=== PATIENT | female | born 1990 | race Caucasian/White ===

== ENCOUNTER 2025-06-05 09:12 | Emergency (ER) | payer OTHER, SELFPAY ==
--- OUTSIDE RECORDS SUMMARY | 2025-06-03 09:00 | XMS_ITS ---
Author Organization [facility] Address [address] [place] [address] Care Team Providers Care Erp Manager Name Role Phone Adria Htuchison Primary Care Provider [phone] Brittany Diego Unavailable [phone] REASON FOR VISIT CRU aT Social History Tobacco Use: Social History Observation Description Date Details (start date - stop date) Current Smoker NA - NA Sex Assigned At : Social History Observation Description Sex Assigned At Female PRAPARE Question Answer Notes Date Completed/Updated: 06/03/2025 What is your current housing situation? I do not have housing (staying with others, in a hotel, in a nursing home, living outside on the street, on a beach, or in a park) Are you worried about losing your housing? Yes What is the highest level of school that you have finished? Less than a high school degree What is your current work situation? 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 Check all that apply Phone Has lack of transportation k ept you from medical appointments, meetings, work or from getting things needed for daily living? No How often do you see or talk to people that you care about and feel close to? (For example: talking to friends on the phone, visiting friends or family, going to sikh or club meetings) More than 5 times a week How stressed are you? Stress is when someone feels tense, nervous, anxious, or can\t sleep at night because their mind is troubled Very much In the past year have you sp ent more than 2 nights in a row in a half-way, residential, nursing home center, or juvenile correctional facility? No Are you a refugee? I choose not to answer this q uestion What country are you from? I choose not to answe r this question Do you feel physically and e motionally safe where you currently live? Yes In the past year, have you b een afraid of your partner or ex-partner? Yes PRAPARE Score: 10 Enabling Services Provided? Yes Please specify Case Management Follow-up Tobacco Control (Standard) Question Answer Notes Tobacco use: Current every day smoker Additional Findings: Tobacco user e-cigarette Encounters Encounter Location Date Provider Diagnosis [facility] [address] [place] [address] 06/03/2025 Brittany Diego Patient underweight R63.6 and Substance abuse F19.10 Assessments Encounter Date Diagnosis (ICD Code) Assessment Notes Treatment Notes Treatment Clinical Notes Section Notes 06/03/2025 Patient underweight (ICD-10 - R63.6) 06/03/2025 Substance abuse (ICD-10 - F19.10) 06/03/2025 Other Clinician met w ith client to assess needs for residential services. Clinician gathered information regarding historical presentation of mental health and substance use symptoms including withdrawal, HIV Risk assessment, psychiatric hospitalization history and presenting concern. Clinician conducted PHQ9 and CSSRS assessments as well as social drivers of health screening for the purposes of identifying additional service needs. Plan Of Treatment Treatment Notes Assessment Notes Other Clinician met with isabelle monahan to assess needs for residential services. Clinician gathered information regarding historical presentation of mental health and substance use symptoms including withdrawal, HIV Risk assessment, psychiatric hospitalization history and presenting concern. Clinician conducted PHQ9 and CSSRS assessments as well as social drivers of health screening for the purposes of identifying additional service needs. Next Appt Details Follow Up: prn, Reason: Provider Name:Isra gautam, 06/05/2025 01:00:00 PM, [address], [place], [address], Progress Notes * Colby SINGLETONOB:1990 (34 yo F)Acc No.[id number]:06/03/2025 UNLOCKED PROGRESS NOTE Patient: Libertad VAUGHAN Provider: Antonio Diego :1990 A ge:34 Y S ex:Female Date:06/03/2025 Address:[facility] Pcp:Adria Hutchison Subjective: * Chief Complaints: * 1 . CRU aT. * HPI: P sychiatric Assessment - Current Symptoms: Primary concern today A dmitting today for [facility]. O verview of Mental Health Symptoms C hero reported she has been diagnosed with Depression and anxiety, BPD bipolar 2. H istory of Psychiatric Hospitalizations C hero reported she has been hospitalized for mental health concerns many times but is unable to report how many or when the last time was. H istory of Psychiatric and Behavioral Health Treatment?None reported at this time. S ubstance Use: Current Use Patterns C hero reported she is using every day all day long. P rimary Substance Used F entanyl. H istory of substance use H as been using for about 5 years. H x of Withdrawal C hero reported experiencing hot and cold sweats, nausea, shaking, body aches, and depressive symptoms. A ssessment of Social Determinants of Health::: Has A PRAPARE Been Completed In The Past Year? H as a PRAPARE Been Completed In The Past Year? Y es, W as It Completed Today Using [employer]? Y es.? a TBC For Substance Use Services: Who Is Your Primary Care Provider? D o You Have A Primary Care Provider? N o, D ate of last physical exam 0 -2024. D o You Have A Psychiatric Provider? D o You Have A Psychiatric Provider? Y inocencio Mckinney at [place]. D o You Have Any Other Professional Supports? D o You Have Any Other Professional Supports N o.?Consent Forms Completed C onsent Forms N one Needed at this time. D epression Screening: PHQ-9 L ittle interest or pleasure in doing things S everal days, F eeling down, depressed, or hopeless S everal days, T rouble falling or staying asleep, or sleeping too much S everal days, F eeling tired or having little energy S everal days, P oor appetite or overeating N ot at all, F eeling bad about yourself or that you are a failure, or have let yourself or your family down N ot at all, T rouble concentrating on things, such as reading the newspaper or watching television S ever, M oving or speaking so slowly that other people could have noticed; or the opposite, being so fidgety or restless that you have been moving around a lot more than usual S everal days, T houghts that you would be better off or of hurting yourself in some way N ot at all, T otal Score 6, I nterpretation M ild Depression. I ntervention D epression Screening Findings P ositive, F ollow-Up for Depression P atient refused intervention. S creening: Barnes Suicide Severity Rating Scale (LF) D o you want to initiate with S creener form, 1 . Wish to be : Have you wished you were or wished you could go to sleep and not wake up? N o, 2 . Suicidal Thoughts: Have you actually had any thoughts of killing yourself? N o, 6 . Suicide Behavior Question: Have you ever done anything,started to do anything, or prepared to end your life? N o, I nterpretation: L ow Risk. * Medical History: * Social History: S ocial Determinants: P SALENA Otto ate Completed/Updated: 0 06/03/2025, W hat is your current housing situation? I do not have housing (staying with others, in a hotel, in a nursing home, living outside on the street, on a beach, or in a park), A re you worried about losing your housing? Y es, W hat is the highest level of school that you have finished? L ess than a high school degree, What is your current work situation? 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 Check all that apply P Jay jackson as lack of transportation kept you from medical appointments, meetings, work or from getting things needed for daily living? N o, H ow often do you see or talk to people that you care about and feel close to? (For example: talking to friends on the phone, visiting friends or family, going to sikh or club meetings) M ore than 5 times a week, H ow stressed are you? Stress is when someone feels tense, nervous, anxious, or can\t sleep at night because their mind is troubled V deyvi much, I n the past year have you spent more than 2 nights in a row in a half-way, residential, nursing home center, or juvenile correctional facility? N o, A re you a refugee? I choose not to answer this question, W hat country are you from? I choose not to answer this question, D o you feel physically and emotionally safe where you currently live? Y es, I n the past year, have you been afraid of your partner or ex-partner? Y es, P RAPARE Score: 1 0, E nabling Services Provided? Y es, P anh specify C ase Management Follow-up. T obacco Use: T obacco Control (Standard) T obacco use: C urrent every day smoker, A dditional Findings: Tobacco user e -cigarette. Objective: * Vitals: * Examination: M ental Status Exam: ATTENTION AND CONCENTRATION N o deficits. APPEARANCE P oorly Groomed. ATTITUDE AND BEHAVIOR C ooperative. EYE CONTACT G ood. AFFECT C ongruent with reported mood. MOOD E uthymic. INSIGHT F air. JUDGMENT F air. Assessment: * Assessment: 1. P atient underweight - R63.6 2 . S ubstance abuse - F19.10 ? Plan: * Treatment: * Procedure Codes: 9 0791 PSYCH DIAGNOSTIC EVALUATION, Modifiers: AJ , CHS08 [facility] Service * Preventive Medicine: Counseling: S MOKING: P atient counselled on the dangers of tobacco use and urged to quit. 0 06/03/2025 .. C are goal follow-up plan: B LA management provided Y es,?Below Normal BMI Follow-up L ifestyle education regarding diet. * Follow Up: p rn * * Electronic signature of Verajesusita josette Diego on 06/05/2025 at 10:51 AM CDT Sign off status: Pending * Provider: Antonio Diego Date: 0 06/03/2025 Generated for Kody matos/Kings/Gwyn on: 0 06/05/2025 10:51 AM CDT History and Physical Notes * HPI (History of Present Illness) Category Sub-Category Detail Notes Category Not es Depression Screening PHQ-9 Little inte rest or pleasure in doing things: Several days Feeling down, depressed, or hopeless: Se veral days Trouble falling or staying asleep, or sl eeping too much: Several days Feeling tired or having little energy: S everal days Poor appetite or overeating: Not at all Feeling bad about yourself o r that you are a failure, or have let yourself or your family down: Not at all Trouble concentrating on thi ngs, such as reading the newspaper or watching television: Several days Moving or speaking so slowly that other people could have noticed; or the opposite, being so fidgety or restless that you have been moving around a lot more than usual: Several days Thoughts that you would be b irena off or of hurting yourself in some way: Not at all Total Score: 6 Interpretation: Mild Depression Intervention Depression Screening Findings: P ositive Follow-Up for Depression: Patient refuse d intervention Psychiatric Assessment - Current Symptoms Primary concern today Admitting today for [facility] Overview of Mental Health Symptoms Clien t reported she has been diagnosed with Depression and anxiety, BPD bipolar 2 History of Psychiatric Hospitalizations Client reported she has been hospitalized for mental health concerns many times but is unable to report how many or when the last time was History of Psychiatric and B ehavioral Health Treatment None reported at this time Substance Use History of substance use Has been using for about 5 years Hx of Withdrawal Client reported expe riencing hot and cold sweats, nausea, shaking, body aches, and depressive symptoms Primary Substance Used Fentanyl Current Use Patterns Client reported she is using every day all day long Screening Barnes Suicide Sev erity Rating Scale (LF) Do you want to initiate with: Screener form 1. Wish to be : Have you wished you were or wished you could go to sleep and not wake up?: No 2. Suicidal Thoughts: Have you actually had any thoughts of killing yourself?: No 6. Suicide Behavior Question: Have you ever done anything,started to do anything, or prepared to end your life?: No Interpretation:: Low Risk Assessment of Social Determinants of Health:: Has A PRAPARE Been Completed In The Past Year? Has a PRAPARE Been Completed In The Past Year?: Yes Was It Completed Today Using [employer]?: Yes [facility] Who Is Your Primary Care Provider? Do You Have A Primary Care Provider?: No Date of last physical exam: Do You Have A Psychiatric Provider? Do You Have A Psychiatric Provider?: Yes Lisa Mckinney at [place] Do You Have Any Other Professional Supports? Do You Have Any Other Professional Supports: No Consent Forms Completed Consent Forms: N one Needed at this time Examination Category Sub-Category Detail Notes Category Not es Mental Status Exam ATTENTION AND CONCENTRATION No defi cits APPEARANCE Poorly Groomed ATTITUDE AND BEHAVIOR Cooperative EYE CONTACT Good AFFECT Congruent with repor celestina mood MOOD Euthymic INSIGHT Fair JUDGMENT Fair
[2025-06-05] VITALS (9 sets, daily range): BP systolic 105–114; BP diastolic 71–84; PULSE 96–109; RESP 12–22; TEMP 36.4; O2SAT 99–100
--- NOTE | ~2025-06-05 | XR_ITS ---
EXAMINATION: XR chest 2V 06/05/2025 10:42 INDICATION: Chest pain PROCEDURE: 2 view chest COMPARISON: No prior studies for comparison. FINDINGS: The lungs are clear. The cardiomediastinal silhouette is within normal limits. There are no pleural effusions. There is no pneumothorax suspected. There is a lower thoracic vertebral compression fracture treated with vertebroplasty. There are Aviles rods overlying the lower thoracic s pine. IMPRESSION: 1: NO ACUTE CARDIOPULMONARY DISEASE. Reviewed, dictated and finalized at location O.
--- NOTE | ~2025-06-05 | CT_ITS ---
EXAMINATION: CTA chest PE protocol, 06/05/2025 11:35 CDT HISTORY: cp, sob, +dimer COMPARISON: No comparisons available. TECHNIQUE: CTA examination is obtained with contrast CTA examination technique is performed with arterial phase of contrast-enhancement. 3-D reconstruction with thin MIP axial and MPR coronal imaging is provided Isovue 300, 92cc injected IV. One or more of the following dose reduction techniques were used: automated exposure control, adjustment of the mA and/or kV according to patient size, use of iterative reconstruction technique. FINDINGS: No significant coronary calcification is present ([id number]) LUNGS: The contrast bolus is adequate, there is no pulmonary embolism identified. No tracheomalacia. No bronchiectasis. Minimal emphysematous changes. Minimal pulmonary fibrotic changes. Minimal apical scarring noted bilaterally. HEART AND PERICARDIUM: Within normal limits. AORTA: Normal caliber aorta.. PULMONARY ARTERIES: No pulmonary embolism ADENOPATHY/MEDIASTINUM: None. LIMITED VIEWS OF THE ABDOMEN: Within normal limits. OSSEOUS STRUCTURES: Postsurgical changes noted in the spine with kyphoplasty changes. No sclerotic or lytic lesions are appreciated. OVERLYING SOFT TISSUES: The subcutaneous tissues of the right chest there is a focus of abnormal density measuring 2 x 1.1 cm incompletely evaluated possibly a sebaceous cyst, correlation with mammogram and ultrasound is suggested. THYROID: The thyroid is unremarkable. IMPRESSION: 1. Negative for pulmonary embolism. No acute process identified. 2. Incidental findings above Reviewed, dictated and finalized at location A.
--- OUTSIDE RECORDS SUMMARY | 2025-06-05 03:04 | XMS_ITS ---
[facility] Organization [facility] Address [address] [place] [address] Care Team Providers Care Game Design Instructor Name Role Phone Adria Hutchison Primary Care Provider Social History Sex Assigned At : Social History Observation Description Sex Assigned At Female Problems Problem Type SNOMED Code ICD Code Onset Dates Problem Status W/U Status Risk Notes Problem Abnormal laboratory test result (R89.9) Active confirmed Encounters Encounter Location Date Provider Diagnosis [facility] [address] [place] [address] 06/05/2025 Adria Foster Abnormal laboratory test result R89.9 Assessments Encounter Date Diagnosis (ICD Code) Assessment Notes Treatment Notes Treatment Clinical Notes Section Notes 06/05/2025 Abnormal laboratory test result (ICD-10 - R89.9) Plan Of Treatment Future Test Test Name Order Date CBC With Differential/Platelet* 06/06/20 25 CMP 14 Comprehensive Metabolic Panel* Next Appt Details Provider Name:Isra gautam, 06/05/2025 01:00:00 PM, [address], [place], [address], Progress Notes * Colby SINGLETONOB:1990 (34 yo F)Acc No.[id number]:06/05/2025 Patient: Libertad VAUGHAN :1990 A ge:34 Y S ex:Female Address:[place], [address] Subjective: * Chief Complaints: * * Medical History: * Surgical History: * Hospitalization/Major Diagno stic Procedure: * Medications: Objective: * Vitals: * Physical Examination: Assessment: * Assessment: 1. A bnormal laboratory test result - R89.9 (Primary) Plan: * Treatment: * Procedure Codes: * true * Date: Generated for Kody matos/Kings/Yusraitting on: 0 06/05/2025 10:51 AM CDT
--- NOTE | 2025-06-05 09:46 | ECG_ITS ---
Test Date: 2025-06-05 10:01:05 Measurements Intervals [place] Rate: 97 P: 61 ID: 110 QRS: 63 QRSD: 72 T: 52 QT: 342 QTc: 436 Interpretive Statements SINUS RHYTHM WITH SHORT ID INTERVAL POSSIBLE LEFT ATRIAL ENLARGEMENT MINIMAL Q WAVES- INFERIOR LEADS BORDERLINE T WAVE ABNORMALITY- ANTERIOR LEADS BASELINE ARTIFACT- V4-V6 BORDERLINE ECG No previous ECG available for comparison Electronically Signed On 06-05-2025 10:28:26 CDT by Alonso Juarez D.O.
[2025-06-05 10:15] LABS: Hematocrit 38.5 % (37.0-47.0); Hemoglobin 11.5 g/dL (12.0-15.0); Immature Granulocyte Percent A 0.3 % (0-0.5); Lymphocytes Absolute Auto 1.45 K/mm3 (0.9-3.2); Mean Corpuscular HGB Conc 29.9 g/dl (32-36); Mean Corpuscular Hemoglobin 23.6 pg (26-34); Mean Corpuscular Volume 78.9 fl (80-100); Nucleated Red Blood Cells Absolute Auto 0.000 K/mm3 (0.0-0.012); Nucleated Red Blood Cells Perc 0.0 % (0.0-0.2); Platelet Count Result 360 k/mm3 (150-375); Red Blood Count 4.88 M/mm3 (4.2-5.4); White Blood Count 6.1 K/mm3 (4.5-10.0)
--- NOTE | 2025-06-05 10:44 | ED.RECABL ---
HPI - Recheck/Abnormal Lab/Rx General Chief Complaint: Recheck/Abnormal Lab/Rx Stated Complaint: [facility] Time Seen by Provider: 06/05/25 09:21 Source: patient Mode of arrival: ambulatory Limitations: no limitations History of Present Illness HPI narrative: Patient is a 34 y/o female who presents to the ED with c/o abnormal labs. Patient reports she is currently residing at [facility] for substance abuse. Reports she has not used any substances in the past 1 week. Reports she had blood work performed yesterday in preparation for being admitted to [place] and was told she had abnormal labs regarding her heart/chest. She was sent here for further evaluation. She is unsure what labs were abnormal. She reports she has been having intermittent midsternal pain for the last 4-5 months. Reports pain is sharp and brief, no significant aggravating or relieving factors. States the pain takes her breath away when in occurs. Denies radiation of pain. Denies any other concerns. Related Data Allergies Allergy/AdvReac Type Severity Reaction Status Date / Time No Known Allergies Allergy Verified 06/05/25 09:47 Review of Systems Review of Systems: All systems reviewed & are unremarkable except as noted in HPI. All systems reviewed & are unremarkable except as noted in HPI and below Exam Narrative: GENERAL: Well appearing, thin, non-toxic, in no acute distress. HEAD: Normocephalic, atraumatic. RESPIRATORY: Airway patent, respirations nonlabored. Clear to auscultation bilaterally, no rales, rhonchi, wheezing. CARDIOVASCULAR: Regular rate and rhythm without murmurs, rubs, or gallops. MUSCULOSKELETAL: Moves all extremities. No gross deformities. No peripheral edema. SKIN: Warm, dry, normal color. NEURO: A&O X3. Speech clear. Cranial nerves II-XII grossly intact. Steady gait. No ataxic movements. PSYCHIATRIC: Appropriate mood and affect. Normal interaction. Course Vital Signs Vital signs: Vital Signs Temperature 97.6 F 06/05/25 09:51 Pulse Rate 103 H 06/05/25 09:51 Respiratory Rate 20 06/05/25 09:51 Blood Pressure 106/81 06/05/25 09:51 Pulse Oximetry 100 06/05/25 09:51 Oxygen Delivery Room Air 06/05/25 09:51 Temperature 97.6 F 06/05/25 09:51 Pulse Rate 98 06/05/25 12:30 Respiratory Rate 14 06/05/25 12:30 Blood Pressure 111/84 06/05/25 12:30 Pulse Oximetry 100 06/05/25 12:30 Oxygen Delivery Room Air 06/05/25 09:51 MDM - Recheck/Abnormal Lab/Rx MDM Narrative Medical decision making narrative: Chest pain times 4-5 months, report of abnormal heart labs yesterday. Unsure which labs were abnormal. I do not have access to these labs. Vital signs stable upon arrival. Patient very borderline tachycardic upon arrival. This improved without intervention. EKG with sinus rhythm, some nonspecific ST changes. No concerning ST elevation or depression. Troponin undetectable. Low suspicion for ACS. Patient reports pain has been ongoing for the last several months. HEART score =0 Basic laboratory studies today are otherwise unremarkable. Stable electrolytes. Stable kidney function. No leukocytosis or significant anemia. Chest x-ray clear D-dimer elevated to 1.22 CTA Chest obtained and negative for PE or other acute cardiopulmonary findings. Patient updated on lab and imaging findings, overall reassuring workup. Feel she is safe for discharge back to [place]. Recommended follow-up with PCP for further evaluation. Given return precautions. Discharged in stable condition. Medical Records Attestation: I reviewed the patient's medical records. Lab Data Attestation: I reviewed the patient's lab results. 06/05/25 10:10 06/05/25 10:10 Labs: Lab Results 06/05/25 Range/Units 10:10 WBC 6.1 (4.5-10.0) K/mm3 RBC 4.88 (4.2-5.4) M/mm3 Hgb 11.5 L (12.0-15.0) g/dL Hct 38.5 (37.0-47.0) % MCV 78.9 L (80-100) fl MCH 23.6 L (26-34) pg MCHC 29.9 L (32-36) g/dl RDW 17.3 H (11.5-14.5) % Plt Count 360 (150-375) k/mm3 MPV 8.8 (7.4-10.4) fl Immature Gran % (Auto) 0.3 (0-0.5) % Neut % (Auto) 61.3 (45.5-73.1) % Lymph % (Auto) 23.8 (18.3-44.2) % Humphreys % (Auto) 9.4 H (2.6-8.5) % Eos % (Auto) 4.1 (0-4.4) % Baso % (Auto) 1.1 (0.2-1.2) % Lymph # (Auto) 1.45 (0.9-3.2) K/mm3 Humphreys # (Auto) 0.6 (0.1-0.6) K/mm3 Eos # (Auto) 0.3 (0-0.3) K/mm3 Baso # (Auto) 0.1 (0.0-0.1) K/mm3 Abs Immat Gran (auto) 0.02 (0.00-0.031) K/mm3 Absolute Neuts (auto) 3.7 (1.3-6.7) K/mm3 Absolute Nucleated RBC 0.000 (0.0-0.012) K/mm3 Band Neutrophils % Not Reportable Nucleated RBC % 0.0 (0.0-0.2) % Platelet Estimate Adequate (Adequate) Hypochromasia 1+ Microcytosis 1+ (NORMAL) Schistocytes None seen PT 13.0 (11.1-14.7) Seconds INR 1.0 APTT 21.5 L (22.3-36.8) Seconds D-Dimer 1.22 H (<0.48) ug/mL Sodium 136 L (137-145) mmol/L Potassium 4.1 (3.4-5.0) mmol/L Chloride 100 (98-107) mmol/L Carbon Dioxide 24 (22-30) mmol/L Anion Gap 12 (4-12) mmol/L BUN 18 H (7-17) mg/dL Creatinine 0.53 L (0.7-1.0) mg/dL Estim Creat Clear Calc Not Reportable Estimated GFR > 60 (59 - ) Glucose 103 (65-110) mg/dL Calcium 9.6 (8.4-10.2) mg/dL Total Bilirubin 0.4 (0.2-1.3) mg/dL AST 26 (14-36) U/L ALT 21 (6-35) U/L Alkaline Phosphatase 95 (38-126) U/L Troponin I < 0.012 (0.000-0.034) ng/mL Total Protein 7.7 (6.3-8.2) g/dL Albumin 4.5 (3.5-5.1) g/dL Lipase 22 L (23-300) U/L Imaging Data Attestation: I personally reviewed and interpreted this imaging study as follows: Radiologist's impression: ITS Impressions Chest X-Ray 06/05/25 10:57 IMPRESSION: 1: NO ACUTE CARDIOPULMONARY DISEASE. Chest CTA 06/05/25 11:50 IMPRESSION: 1. Negative for pulmonary embolism. No acute process identified. 2. Incidental findings above ECG Data EKG #1: Attestation: I personally reviewed and interpreted this ECG as follows: ECG completion date: 06/05/25 ECG completion time: 10:01 EKG Interpretation: normal rate (97), sinus rhythm, non-specific ST changes and other (Short MN interval) Discharge Plan Discharge Clinical Impression: Atypical chest pain Patient Disposition: Home Condition: Stable Instructions: Antibiotic Form, Chest Pain (ED), Chest Wall Pain (ED) Additional Instructions: Your workup here was reassuring against a cardiac cause of your chest pain. Recommend follow-up with your primary care doctor for further evaluation as needed. Return to the ED if you experience worsening or severe symptoms severe pain, difficulty breathing, unable to keep down food or drink, pain or swelling in your legs, or any other symptoms of concern. Patient Language: Maori Follow-up/Referrals: PHYSICIAN,CHILD NEUROLOGIST [Primary Care Provider, Internal Medicine] Donn Tovar MD [Physician, Family Practice] Referral Note: PRIMARY CARE Time of Disposition: 12:31 Quality HEART score for chest pain patients History: slightly suspicious ECG: normal Age: < or = to 45 years Risk factors: no risk factors known Troponin: < or = to 1x normal limit Heart score: 0
--- OUTSIDE RECORDS SUMMARY | 2025-06-05 10:52 | XMS_ITS | Clinical Summary ---
Author Organization [facility] Address [address] [place] [address] Phone Care Team Providers Care Logistics Lead Name Role Phone Provider, None Primary Care Provider Unavailabl e Medications * This document contains information received from the source organization and may not represent a complete record from that organization. chlordiazePOXID E (LIBRIUM) 10 MG CapsuleIndicati ons:Alcohol use with withdrawal (HCC) Take 1 Capsule by mouth every 8 hours as needed for Withdrawal. 10 Capsule 09/04/2024 Active Active Problems Problem Noted Date Diagnosed Date Moderate protein malnutrition 09/04/2024 Resolved Problems Problem Noted Date Diagnosed Date Resolved Date Alcohol use with withdrawal 09/02/2024 09/04/2024 Social History Tobacco Use Types Packs/Day Years Used Date Smoking Tobacco: Never Assessed [facility] Utilities Answer Date Recorded In the past [address] [facility] [employer], [employer], oil, or water [employer] threatened to shut off services in your home? Patient declined 09/02/2024 Overall Financial Resource Strain (CARDIA) Answe r Date Recorded How hard is it for you to pa y for the very basics like food, housing, medical care, and heating? Patient declined 09/02/2024 Exercise Vital Sign Answer Date Recorde d On average, how many days pe r week do you engage in moderate to strenuous exercise (like a brisk walk)? Patient declined On average, how many minutes do you engage in exercise at this level? Patient declined 09/02/2024 Hunger Vital Sign Answer Date Recorded Within the past 12 months, y ou worried that your food would run out before you got the money to buy more. Patient declined Within the past 12 months, t he food you bought just didn't last and you didn't have money to get more. Patient declined PRAPARE - Transportation Answer Date Re corded In the past 12 months, has l ack of transportation kept you from medical appointments or from getting medications? Patient declined 09/02/2024 In the past 12 months, has l ack of transportation kept you from meetings, work, or from getting things needed for daily living? Patient declined 09/02/2024 Housing Stability Vital Sign Answer Steven e Recorded In the last 12 months, was t here a time when you were not able to pay the mortgage or rent on time? Patient declined 09/02/20 24 In the past 12 months, how m any times have you moved where you were living? 1 09/02/2024 At any time in the past 12 m [facility], were you homeless or living in a alf (including now)? Patient declined 09/02/2024 Comments No Sex and Gender Information Value Date Recorded Sex Assigned at Not on file Legal Sex Female 2:39 PM DECONTAMINATOR Gender Identity Not on file Sexual Orientation Not on file Last Filed Vital Signs Vital Sign Reading Time Taken Comments Blood Pressure 121/88 09/04/2024 4:23 AM DECONTAMINATOR Pulse 79 09/04/2024 4:23 AM DECONTAMINATOR Temperature 37.2 C (98.9 F) 09/04/2024 4:23 AM DECONTAMINATOR Respiratory Rate 18 09/04/2024 4:23 AM DECONTAMINATOR Oxygen Saturation 95% 09/04/2024 4:23 AM DECONTAMINATOR Inhaled Oxygen Concentration - - Weight 39.5 kg (87 lb) 09/03/2024 11:00 AM DECONTAMINATOR b ed scale Height 147.3 cm (4' 10) 09/02/2024 2:30 PM DECONTAMINATOR Body Mass Index 18.18 09/02/2024 2:30 PM DECONTAMINATOR Plan of Treatment Health Maintenance Due Date Last Done Comments Hepatitis C Virus (HCV) Screening 1992 SARS-COV-2 Immunization (#1) 1997 Human Papillomavirus (HPV) Immunization (1 - 3-dose SCDM series) 2019 Influenza Immunization (#1) 06/09/202507/09, 12/12/2017 Respiratory Syncytial Virus (RSV) Immunization (Adult) (1 - 1-dose 75+ series) 2067 Hepatitis B Immunization Completed 993, 03/13/1993, 1992 TdaP Immunization Completed 04/30/2018, 02/12/2018 Meningococcal Immunization (ACWY) Aged Out No longer eligible b ased on patient's age to complete this topic Pneumococcal Immunization Combined Aged Out No longer eligible b ased on patient's age to complete this topic Rotavirus Immunization Aged Out No lo nger eligible based on patient's age to complete this topic Insurance MEDICAID [facility] Advance Directives * Full Code (Latest Code Status on File) Date Activated Date Inactivated Comments 09/02/2024 11:31 PM CPR-Full [place]ill[place] atment: FULL ARREST: Attempt Resuscitation/CPR wit intubation and mechanical ventilation. PRE-ARREST: Use entire range of life support measures to stabilize the patient. Care Teams Logistics Lead Relationship Specialty Start Date End Date Provider, None [place] PCP - General 09/02/24
--- OUTSIDE RECORDS SUMMARY | 2025-06-05 10:52 | XMS_ITS | Patient Health Record ---
Author Organization [facility] Address [address] [place] [address] Care Team Providers Care Certified Medication Aide Name Role Phone Adria Hutchison Primary Care Provider [phone] Isra Pacheco Unavailable [phone] Danette Allan Unavailable [phone] Bryan Jackson Unavailable [phone] Brittany Diego Unavailable [phone] Allergies No Known Allergies Results Component Value Reference Range Notes 14 Panel Urine Drug Screen Reviewed date:06/04/2025 08:20:26 AM Interpretation: Performing Lab: Notes/Report: THC neg ALICIA neg MOP (OPI) neg AMP neg MET neg BAR neg BZO neg MDMA neg MTD neg OXY neg PCP neg BUP pos TCA neg FTY neg CBC With Differential/Platel et* Reviewed date:06/05/2025 09:08:56 AM Interpretation: Performing Lab:[facility] [place], [address] [facility], Phone - [phone], Director - PhDRicchiuti Notes/Report: WBC 10.3 3.4-10.8 x10E3/uL RBC 5.45 3.77-5.28 x10E6/uL Hemoglobin 13.2 11.1-15.9 g/dL Hematocrit 42.9 34.0-46.6 % MCV 79 79-97 fL MCH 24.2 26.6-33.0 pg MCHC 30.8 31.5-35.7 g/dL RDW 16.8 11.7-15.4 % Platelets 552 150-450 x10E3/uL Neutrophils 69 Not Estab. % Lymphs 19 Not Estab. % Monocytes 8 Not Estab. % Eos 3 Not Estab. % Basos 1 Not Estab. % Neutrophils (Absolute) 7.1 1.4-7.0 x10E3/uL Lymphs (Absolute) 2.0 0.7-3.1 x10E3/uL Monocytes(Absolute) 0.8 0.1-0.9 x10E3/uL Eos (Absolute) 0.3 0.0-0.4 x10E3/uL Baso (Absolute) 0.1 0.0-0.2 x10E3/uL Immature Granulocytes 0 Not Estab. % Immature Grans (Abs) 0.0 0.0-0.1 x10E3/uL CMP 14 Comprehensive Metabol ic Panel* Reviewed date:06/05/2025 09:08:56 AM Interpretation: Performing Lab:[facility] [place], [address] [facility], Phone - [phone], Director - Pamella Notes/Report: Glucose 70 70-99 mg/dL BUN 23 6-20 mg/dL Creatinine 0.76 0.57-1.00 mg/dL eGFR 107 >59 mL/min/1.73 BUN/Creatinine Ratio 30 9-23 Sodium 135 134-144 mmol/L Potassium 5.7 3.5-5.2 mmol/L Chloride 92 96-106 mmol/L Carbon Dioxide, Total 23 20-29 mmol/L Calcium 10.3 8.7-10.2 mg/dL Protein, Total 8.0 6.0-8.5 g/dL Albumin 4.8 3.9-4.9 g/dL Globulin, Total 3.2 1.5-4.5 g/dL Bilirubin, Total 0.4 0.0-1.2 mg/dL Alkaline Phosphatase 138 44-121 IU/L AST (SGOT) 17 0-40 IU/L ALT (SGPT) 14 0-32 IU/L HIV Screen *HIV 1, 2 Ab, p24 Ag ([id number]) Reviewed date:06/05/2025 09:08:56 AM Interpretation: Performing Lab:[facility] [place], [address] [facility], [place], Phone - [phone], Director - Pamella Notes/Report: HIV Ab/p24 Ag Screen Non Reactive Non Reactive HIV-1/HIV-2 antibodies and HIV-1 p24 antigen were NOT detected. There is no laboratory evidence of HIV infection. HIV Negative QuantiFERON-TB Gold Plus ([id number]) Reviewed date:06/05/2025 09:08:56 AM Interpretation: Performing Lab:[facility], [address] [facility], Phone - [phone], Director - Pamella Notes/Report: QuantiFERON Incubation Incubation performed. QuantiFERON-TB Gold Plus Negative Negative No response to M tuberculosis antigens detected. Infection with M tuberculosis is unlikely, but high risk individuals should be considered for additional testing (ATS/IDSA/CDC Clinical Practice Guidelines, 2017). The reference range is an Antigen minus Nil result of <0.35 IU/mL. Chemiluminescence immunoassay methodology QuantiFERON Criteria QuantiFERON-TB Gold Plus is a qualitative indirect test for M tuberculosis infection (including disease) and is intended for use in conjunction with risk assessment, radiography, and other medical and diagnostic evaluations. The QuantiFERON-TB Gold Plus result is determined by subtracting the Nil value from either TB antigen (Ag) value. The Mitogen tube serves as a control for the test. 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) Referral Organization [facility] Referring Provider First Name Danette Referring Provider Last Name Short Referring Provider Speciality [facility] Referred Provider Specialty Neurology General Notes Prerna Collazo 10:51:51 AM >Left a message for [facility] medical Group-Neurology to call back to verify if they take clients insurance [facility]., Prerna Collazo 09/11/2024 10:54:44 AM >Referral faxed to [facility] [place] 09/27/2024 08:35:53 AM >Referral letter & message sent to client., Prerna Collazo 04/08/2025 10:40:28 AM >No consult notes in chart. Last seen for a [facility] physical 09/2024 & has not been seen sine at [place]. Outstanding referral message sent to client. Clinical Notes [facility]-Ne u[facility] [place], [address] [place] [address] [address], [place] [address], , New Pt's , Referral Priority Routine Reason Counseling/Therapy s ervices Diagnosis 1 Substance abuse (F19 .10) Referral Organization [facility] Referring Provider First Name Adria Referring Provider Last Name Foster Referring Provider Speciality Internal M edicine Referred Provider Specialty Mental healt h counseling Referral Priority Routine Medications Medication SIG (Take, Route, Frequency, Duration) Notes Start Date End Date Status hydrOXYzine Pamoate 25 MG 1-2 capsules O rally every 4 hours as needed for anxiety, agitation, or inability to sleep. Do not give within 4 hours of diphenhydramine.; Duration: 30 days 06/03/2025 Active Benztropine Mesylate 0.5 MG 1 tablet at bedtime Orally Once a day; Duration: 30 days 09/07/2022 Not-Taking Melatonin 5 MG 1 tablet at bedtime as needed Orally Once a day; Duration: 30 days 06/03/2025 Active Vitamin B-12 1000 MCG 2 tablets Orally O nce a day Active SEROquel 50 MG 1 tablet Orally at night; Duration: 30 days Not-Taking Ferric x-150 150 MG 1 capsule Orally daily Active Folic Acid 1 MG 1 tablet Orally Once a day Active Buprenorphine HCl-Naloxone HCl 8-2 MG 1 tablet under the tongue and allow to dissolve Sublingual 4 times a day Active Multi Vitamin - 1 tablet Orally Once a day; Duration: 30 days 06/03/2025 Active Nicotine Polacrilex 2 MG 1 piece chew fo r 30 minutes as needed Mouth/Throat every 8 hrs Active SEROquel 25 MG 1 tablet as needed Orally Twice a day; Duration: 30 days 09/07/2022 Not-Taking Nicotine 21 MG/24HR 1 patch to skin Transdermal Once a day Active traZODone HCl 50 MG 1 tablet at bedtime as needed Orally Once a day; Duration: 30 day(s) 08/26/2022 Not-Taking Social History Tobacco Use: Social History Observation Description Date Details (start date - stop date) Current Smoker NA - NA Sex Assigned At : Social History Observation Description Sex Assigned At Female PRAPARE Question Answer Notes Date Completed/Updated: 06/03/2025 What is your current housing situation? I do not have housing (staying with others, in a hotel, in a jail, living outside on the street, on a beach, or in a park) Are you worried about losing your housing? Yes What is the highest level of school that you have finished? Less than a high school degree What is your current work situation? 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 Stress is when someone feels tense, nervous, anxious, or can\t sleep at night because their mind is troubled Very much In the past year have you sp ent more than 2 nights in a row in a fpc, penitentiary, correction center, or juvenile correctional facility? 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 Problem Tobacco dependence (42917605) Tobacco dependence (F17.200) Active confirmed Problem Substance abuse (7871567421) Substance abuse (F19.10) Active confirmed Problem Chronic pain (71134655) Chronic pain (G89.29) Active confirmed Problem Laboratory test result abnormal (528968717) Abnormal laboratory test result (R89.9) Active confirmed Problem Methamphetamine abuse (155458099) Methamphetamine abuse (F15.10) Active confirmed Problem Physical examination, complete (65033019) Adult general medical examination (Z00.00) Active confirmed Problem Opioid use disorder (2283409703) Opioid use disorder (F11.99) Active confirmed Vital Signs Heart Rate 96 /min 06/03/2025 Temperature 97.7 degrees Fahrenheit 06/03/2025 Respiratory Rate 16 /min 06/03/2025 Oximetry 99 % 06/03/2025 Blood pressure diastolic 78 mm Hg 06/03/2025 Height 59 in 06/03/2025 Blood pressure systolic 112 mm Hg 06/03/2025 Weight 91.0 lbs 06/03/2025 BMI 18.38 kg/m2 06/03/2025 Encounters Encounter Location Date Provider Diagnosis [facility] [address] [place] [address] 06/05/2025 Bryan Jackson [facility] [address] 06/05/2025 Adria Hutchison Abnormal laboratory test result R89.9 [facility] [address] [place] [address] 09/09/2024 Danette Allan Neurofibromatosis, t ype 1 Q85.01 ; Adult general medical exam Z00.00 ; Methamphetamine abuse F15.10 ; Opioid use disorder F11.99 and Abdominal swelling R19.00 [facility] [place] [address] 06/03/2025 Bryan Jackson Adult general medica l examination Z00.00 ; Patient underweight R63.6 and Neurofibromatosis, type 1 Q85.01 [facility] [address] [place] [address] 06/03/2025 Brittany Diego Patient underweight R63.6 and Substance abuse F19.10 Assessments Encounter Date Diagnosis (ICD Code) Assessment Notes Treatment Notes Treatment Clinical Notes Section Notes 06/03/2025 Patient underweight (ICD-10 - R63.6) 06/05/2025 Abnormal laboratory test result (ICD-10 - R89.9) 09/09/2024 Neurofibromatosis, type 1 (ICD-10 - Q85.01) 09/09/2024 Adult general medical exam (ICD-10 - Z00.00) 06/03/2025 Adult general medical examination (ICD-10 - Z00.00) Admit to the Mental Health/Crisis Residential Unit and initiate standing/protocol orders: The following PRN medications may be self-administered by patients under the supervision of approved staff or administered by nursing staff: Ibuprofen 200mg, 2-4 tablets by mouth (with food) every 6 hours as needed for pain (unless on lithium). (NOTE: Ibuprofen and acetaminophen may be given together, but alternating is recommended for continuous pain relief. Guaifenesin 400 mg, 1 tablet by mouth every four hours as needed for cough and chest congestion (take with large glass of water). Loratadine 10 mg, 1 tablet by mouth daily as needed for allergies, watery itchy eyes, or sinus drainage. Throat Lozenges, up to 4 tablets by mouth every three to four hours as needed for sore throat. Antacid tablets, 1-2 tablets by mouth every one to two hours as needed for indigestion or heart burn. If the client prefers liquid, could use: Liquid Antacid : 1 ounce by mouth up to four times daily as needed for indigestion or heartburn Omeprazole 20mg, 1 capsule by mouth once daily for 14 days for frequent heartburn (frequent heartburn is more than 2 episodes per week). Do not exceed 14 days. Do not give to client already taking a proton-pump inhibitor: esomeprazole (Nexium), lansoprazole (Prevacid), pantoprazole (Protonix), rabeprazole (Aciphex), dexlansoprazole (Dexilant) Zofran ODT disintegrating (under the tongue) 4 mg, 1-2 tablets every 8 hours as needed for nausea/vomiting. Milk of Magnesia (MOM): 1 ounce (30 milliliters) by mouth every day as needed for constipation. OR Miralax: Stir and fully dissolve 17 grams (1 packet or 1 capful to measured line) in any 4 to 8 ounces of beverage then drink once daily for constipation. Do not use for more than 7 days. OR Docusate 100 mg, 1 capsule twice daily as needed for constipation Hydrocortisone 1% Cream, apply topically (to the skin) to the affected area up to three times daily as needed for itching or inflammation (avoid eyes and genitals). 2% Antifungal Cream, apply topically (to the skin) as directed as needed to affected areas for athlete's foot or jock itch. Triple Antibiotic Ointment, apply topically (to the skin) up to three times daily as needed for minor cuts and scrapes. Carmex or Chapstick, apply topically (to the skin) as needed for chapped lips and skin. Orajel, apply to affected areas as needed for mouth or tooth pain. Lubricating Eye Drops, instill 1-2 drops to the affected eye(s) as needed for dry/irritated eye(s). Hemorrhoid medications, apply to affected area according to directions as needed for hemorrhoid discomfort and itch. Nix (Permethrin 1%) cream 2 ounces, apply topically (to the skin) as directed as needed for head lice. Sunscreen 30 SPF, Apply to exposed skin prior to exposure to sun. The following PRN medications must be approved by nursing staff before self-administratio n by patients: Diphenhydramine 25 mg, 2 tablets by mouth every 4 hours as needed for allergic reaction or itchy rash. Caution: Do not use hydroxyzine within 4 hours of diphenhydramine and vice versa. Loperamide 2 mg capsules, may give two capsules by mouth for the initial dose, followed by one capsule up to 3 times a day as needed for diarrhea. Acetaminophen 500 mg, 1 - 2 tablets by mouth every six hours as needed for pain. (NOTE: Ibuprofen and acetaminophen may be given together, but alternating is recommended for continuous pain relief). Oxygen-May administer oxygen 2L/min via nasal cannula if O2 saturation is less than 92%, AND client complains of shortness of breath. Target O2 saturation is 94-98%. Caution: Remember too much oxygen can be detrimental to a client with COPD. Oxygen is a drug and should be delivered by trained staff only. Nurses may remove superficial splinters and sutures from skin lacerations. May apply gauze or bandages to any weeping wounds. Contact nursing if there is pus, a foul odor, increased pain/redness/swell ing, or if soaking through bandages. 06/03/2025 Neurofibromatosis, type 1 (ICD-10 - Q85.01) allow patient to continue to use walker. Allow patient to rest as needed. pt can still attend group. 06/03/2025 Patient underweight (ICD-10 - R63.6) 06/03/2025 Substance abuse (ICD-10 - F19.10) 09/09/2024 Methamphetamine abuse (ICD-10 - F15.10) 09/09/2024 Opioid use disorder (ICD-10 - F11.99) 09/09/2024 Abdominal swelling (ICD-10 - R19.00) 09/09/2024 Other Continue treatment as recommended by [facility] staff. Encouraged patient to obtain routine medical care with patient's own primary care provider or establish as a patient at [facility] if no current primary care provider. 06/03/2025 Other Continue treatment as recommended by [facility] staff. Encouraged patient to obtain routine medical care with patient's own primary care provider or establish as a patient at [facility] if no current primary care provider. 06/03/2025 Other Clinician met w ith client to assess needs for residential services. Clinician gathered information regarding historical presentation of mental health and substance use symptoms including withdrawal, HIV Risk assessment, psychiatric hospitalization history and presenting concern. Clinician conducted PHQ9 and CSSRS assessments as well as social drivers of health screening for the purposes of identifying additional service needs. Plan Of Treatment Next Appt Details Provider Name:Isra gautam, 06/05/2025 01:00:00 PM, [address], [place], [address], Insurance Providers Payer Name Payer Address Payer Phone Subscriber Number Group Number Insured Name Patient Relationship to Insured Coverage Start Date Coverage End Date [facility] [employer] [address] [place] [id number] 4 Libertad Uribe Self - patient is the insured 1 4 [facility] [address] [place] [address] [id number] Libertad Uribe Self - patient is the insured [address] [place] [address] [id number] 4 Libertad Uribe Self - patient is the insured 1 4 Medical (General) History Medical History History ICD Code Opioid use disorder Neurofibromatosis 1 spinal fusion Surgical History Surgery Date(Month/Year) Femur, hip, knee 08/28 Right Ankle 05/2023 Multiple Back Surgeries Hospitalization History Reason Date(Month/Year) Detox 04/2021 Detox 2021 Withdrawal @[facility] 08/2022 [facility] Stomach Problems 08/2024 [facility] Detox 08/2024 [facility] detox 05/2025
[2025-06-05 11:04] LABS: Hypochromasia 1+; Microcytosis 1+ (NORMAL); Schistocytes None Seen
[2025-06-05 11:05] LABS: INR 1.0; Prothrombin Time 13.0 Seconds (11.1-14.7)
[2025-06-05 11:06] LABS: Partial Thromboplastin Time 21.5 Seconds (22.3-36.8)
--- NOTE | 2025-06-05 11:48 | PC.NURSE ---
this RN called [place] 3 times to see what labs were abnormal with no answer
[2025-06-05 12:25] LABS: Alanine Aminotransferase 21 U/L (6-35); Albumin Level 4.5 g/dL (3.5-5.1); Alkaline Phosphatase 95 U/L (38-126); Anion Gap 12 mmol/L (4-12); Aspartate Amino Transferase 26 U/L (14-36); Bilirubin,Total 0.4 mg/dL (0.2-1.3); Blood Urea Nitrogen 18 mg/dL (7-17); Calcium 9.6 mg/dL (8.4-10.2); Carbon Dioxide 24 mmol/L (22-30); Chloride 100 mmol/L (98-107); Estimated Glomerular Filt Rate > 60; Glucose 103 mg/dL (65-110); Lipase 22 U/L (23-300); Potassium 4.1 mmol/L (3.4-5.0); Sodium 136 mmol/L (137-145); Total Protein 7.7 g/dL (6.3-8.2)
[2025-06-05 12:37] LABS: Troponin I < 0.012 ng/mL (0.000-0.034)
--- NOTE | 2025-06-05 13:02 | PC.NURSE ---
this RN was able to get in contact with [place], the labs they were concerned about were her potassium and platelets, this RN let the facility know the labs were normal at this time this RN called for the pt a ride to get picked up
== END 2025-06-05 13:08 | disposition home or self-care (01) ==
PROVIDERS: Emergency Provider Physician Assistant
DX: R07.89 Other chest pain (principal); F19.10 Other psychoactive substance abuse, uncomplicated; R94.31 Abnormal electrocardiogram [ECG] [EKG]
CPT/HCPCS: 36415; 71046; 71275; 80053; 83690; 84484; 85025; 85380; 85610; 85730; 93005; 99284; Q9967